=== PATIENT | female | born 1985 | race African-American/Black ===

== ENCOUNTER 2017-07-18 09:24 | Emergency (ER) | payer OTHER ==
--- NOTE | 2017-07-18 09:58 | ED ---
General Adult HPI - General Chief complaint: Extremity Injury, Upper Stated complaint: Wrist pain Time Seen by Provider: 07/18/17 09:46 Source: patient, RN notes reviewed Mode of arrival: ambulatory Limitations: no limitations - History of Present Illness Initial comments: Patient is a 32-year-old female presented to the emergency room today with a chief complaint of an injury to the right wrist that occurred 4 days ago. She states she was carrying her daughter's bike down some steps just with 1 hand. She states that he noticed some pain there afterwards. She states over the last 4 days does not improve she has been icing and using heat. Has not taken anything for pain. She states worse with certain movements. She denies any other complaints or injuries. - Related Data Home Medications Medication Instructions Recorded Confirmed Fluticasone Nasal [place] [Flonase 2 spr EA NOSTRIL DAILY 07/18/17 07/18/17 Nasal [place]] Allergies Allergy/AdvReac Type Severity Reaction Status Date / Time Penicillins Allergy Rash/Hives Verified 07/18/17 09:58 Review of Systems ROS Statement: Those systems with pertinent positive or pertinent negative responses have been documented in the HPI. ROS Other: All systems not noted in ROS Statement are negative. Past Medical History Past Medical History: No Reported History Additional Past Medical History / Comment(s): History of migranes and anxiety History of Any Multi-Drug Resistant Organisms: None Reported Past Surgical History: No Surgical Hx Reported Past Psychological History: Anxiety Smoking Status: Never smoker General Exam - General Exam Comments Initial Comments: General: The patient is awake and alert, in no distress, and does not appear acutely ill. Neck: The neck is supple, there is no tenderness or JVD. Musculoskeletal: Patient has normal appearance and right wrist no obvious deformity. Patient point tenderness on exam. Shows good range of motion. Does have some tenderness with full flexion extension of the right wrist. Radial pulse 2+. Strength 5/5. Sensation intact. Neurological: A&O x 3. CN II-XII intact, There are no obvious motor or sensory deficits. Coordination appears grossly intact. Speech is normal. Skin: Skin is warm and dry and no rashes or lesions are noted. Psychiatric: Normal mood and affect. Limitations: no limitations Course Vital Signs 07/18/17 09:39 Temperature 98.2 F Pulse Rate 74 Respiratory 18 Rate Blood Pressure 120/77 O2 Sat by Pulse 99 Oximetry Medical Decision Making - Medical Decision Making Patient reexamined at this time shows no signs of distress. Patient's x-rays negative. Eyes positive or sprain. Advised follow-up orthopedics if symptoms are not improving over the next week. Disposition Clinical Impression: Wrist sprain Disposition: HOME SELF-CARE Condition: Good Instructions: Wrist Sprain (ED) Additional Instructions: Please Leonel wrap on up and moving around. Please use ibuprofen for pain. Please follow-up the family doctor/orthopedic over the next 7-10 days if symptoms persist for repeat x-rays. Please return to emergency room if the symptoms increase or worsen or for any other concerns. Is patient prescribed a controlled substance at d/c from ED?: No Referrals: Jermaine Yung MD [Primary Care Provider] - 1-2 days Lucio Hill DO [Doctor of Osteopathic Medicine] - 1-2 days Time of Disposition: 11:15
--- NOTE | 2017-07-18 10:18 | XR ---
EXAMINATION TYPE: XR wrist complete RT DATE OF EXAM: 07/18/2017 COMPARISON: NONE HISTORY: Pain TECHNIQUE: Four views submitted. FINDINGS: The osseous structures are intact. The joint spaces are preserved and there is no acute fracture or dislocation. IMPRESSION: 1. No definite acute fracture or dislocation if symptoms persist, follow-up study in 7 to 10 days wo uld be suggested
[2017-07-18 11:25] VITALS: BP 129/88; PULSE 61; RESP 16; TEMP 97.7
== END 2017-07-18 11:29 | disposition home or self-care (01) ==
LOC: EC 09:24
DX: S63.501A Unspecified sprain of right wrist, initial encounter (principal); Z79.51 Long term (current) use of inhaled steroids; Z88.0 Allergy status to penicillin; X58.XXXA Exposure to other specified factors, initial encounter; Y93.89 Activity, other specified
CPT/HCPCS: 99283

== ENCOUNTER → 2017-09-02 | Outpatient (CLI) | payer OTHER ==
--- NOTE | 2017-09-02 10:25 | MM ---
Reason for exam: clinical finding. Baseline mammogram. History: Family history of breast cancer in paternal aunt at age 45 and breast cancer in maternal aunt at age 40. Took hormonal contraceptives for 1 year beginning at age 30. Physical Findings: Nurse did not find any significant physical abnormalities on exam. [facility] Mammo wo CAD DOMINGO Bilateral CC and MLO view(s) were taken. There are scattered fibroglandular densities. No suspicious abnormality. These results were verbally communicated with the patient and result sheet given to the patient on 09/02/17. ASSESSMENT: Negative, BI-RAD 1 RECOMMENDATION: Routine screening mammogram of both breasts at age 40. (40 or sooner in clinically indicated) Manage on a clinical basis with regard to bilteral nipple pain without discharge , no palpable) MTDD
== END | disposition home or self-care (01) ==
LOC: RADMAMWWP 08:24
PROVIDERS: ATTEND Obstetrics & Gynecology
DX: N64.59 Other signs and symptoms in breast (principal)
CPT/HCPCS: 77066

== ENCOUNTER 2017-09-20 10:45 | Emergency (ER) | payer OTHER ==
[2017-09-20 10:49] VITALS: BP 120/78; PULSE 69; RESP 18; TEMP 98
--- NOTE | 2017-09-20 11:29 | ED ---
General Adult HPI - General Chief complaint: Anxiety Stated complaint: Panic attack Time Seen by Provider: 09/20/17 10:50 Source: patient, EMS, RN notes reviewed Mode of arrival: EMS Limitations: no limitations - History of Present Illness Initial comments: 32-year-old female presents to the emergency department for a chief complaint of "panic attack." Patient states this occurred about 45 minutes ago. Patient states she was walking with her kids from the [facility] when she started to experience a panic attack. Patient states she started crying and felt somewhat short of breath. Patient states these are consistent with past panic attacks. She states multiple people stopped to help her and she believes the police called EMS because she saw them driving by. Patient states she used to take Xanax but her doctor does not want her on it anymore. Patient states she is currently taking Paxil. Patient has no other complaints at this time including shortness of breath, chest pain, abdominal pain, nausea or vomiting, headache, or visual changes. - Related Data Home Medications Medication Instructions Recorded Confirmed Fluticasone Nasal [place] [Flonase 1 spr EA NOSTRIL DAILY PRN 07/18/17 09/20/17 Nasal [place]] Allergies Allergy/AdvReac Type Severity Reaction Status Date / Time Penicillins Allergy Rash/Hives Verified 09/20/17 10:56 pineapple Allergy Anaphylaxis Verified 09/20/17 10:56 strawberry Allergy Rash/Hives Verified 09/20/17 10:56 Review of Systems ROS Statement: Those systems with pertinent positive or pertinent negative responses have been documented in the HPI. ROS Other: All systems not noted in ROS Statement are negative. Past Medical History Past Medical History: No Reported History Additional Past Medical History / Comment(s): History of migranes and anxiety History of Any Multi-Drug Resistant Organisms: None Reported Past Surgical History: No Surgical Hx Reported Past Psychological History: Anxiety Smoking Status: Never smoker Past Alcohol Use History: None Reported Past Drug Use History: None Reported General Exam Limitations: no limitations General appearance: alert, in no apparent distress (Laying in bed setting with children, patient calm, in no distress) Head exam: Present: atraumatic, normocephalic, normal inspection Eye exam: Present: normal appearance, PERRL, EOMI. Absent: scleral icterus, conjunctival injection, periorbital swelling ENT exam: Present: normal exam, normal oropharynx, mucous membranes moist, TM's normal bilaterally, normal external ear exam Neck exam: Present: normal inspection, full ROM. Absent: tenderness, meningismus, lymphadenopathy Respiratory exam: Present: normal lung sounds bilaterally. Absent: respiratory distress, wheezes, rales, rhonchi, stridor Cardiovascular Exam: Present: regular rate, normal rhythm, normal heart sounds. Absent: systolic murmur, diastolic murmur, rubs, gallop, clicks Neurological exam: Present: alert, oriented X3, CN II-XII intact Psychiatric exam: Present: normal affect, normal mood. Absent: anxious ( patient does not appear anxious, she is calm and answering questions without difficulty.) Course Vital Signs 09/20/17 10:46 Temperature 98 F Pulse Rate 69 Respiratory 18 Rate Blood Pressure 120/78 O2 Sat by Pulse 98 Oximetry Medical Decision Making - Medical Decision Making 32-year-old female presents to the emergency determine for chief complaint of panic attack occurring about 45 minutes ago. Patient symptoms are consistent with past panic attacks. On exam patient is not anxious appearing. She is calm and answering questions without difficulty. Patient states she is feeling much better although somewhat tired after experiencing the anxiety. Patient does not need anxiolytic at this time. Patient states she feels ready to go home. Patient agrees to follow up with primary care in 1-2 days to discuss medications. Patient agrees to return to the emergency Department if she has any worsening symptoms. Disposition Clinical Impression: Acute anxiety Disposition: HOME SELF-CARE Condition: Good Instructions: Generalized Anxiety Disorder (ED) Additional Instructions: Please follow up with primary care in 1-2 days. Return to the emergency department if you have any worsening symptoms. Is patient prescribed a controlled substance at d/c from ED?: No Referrals: Jermaine Yung MD [Primary Care Provider] - 1-2 days Time of Disposition: 11:29
== END 2017-09-20 11:50 | disposition home or self-care (01) ==
LOC: EC 10:45
DX: F41.9 Anxiety disorder, unspecified (principal); Z86.69 Personal history of other diseases of the nervous system and sense organs; Z88.0 Allergy status to penicillin; Z91.018 Allergy to other foods
CPT/HCPCS: 99283

== ENCOUNTER 2022-10-20 09:24 | Emergency (ER) | payer OTHER ==
[2022-10-20] MEDS ORDERED: ONDANSETRON 4 MG/2 ML VIAL IVP STA (10:43)
[2022-10-20] MEDS ORDERED: SODIUM CHLORIDE 0.9% 1,000 ML IV ONE (10:43)
[2022-10-20] MEDS ORDERED: MAG HYDROX/AL HYDROX/SIMETH 30 ML, HYOSCYAMINE ELIXIR 10 ML, LIDOCAINE 2% GLYDO JELLY 1... PO STA ×3 (10:54)
[2022-10-20 11:08] LABS: Appearance,Urine Clear (Clear); Bilirubin,Urine Negative (Negative); Blood,Urine Negative (Negative); Color,Urine Yellow; Glucose,Urine (UA) Negative (Negative); Ketones,Urine Negative (Negative); Leukocyte Esterase,Urine Negative (Negative); Nitrite,Urine Negative (Negative); PH, Urine 5.5 (5.0-8.0); Protein,Urine Trace (Negative); Specific Gravity,Urine 1.026 (1.001-1.035); Urobilinogen,Urine <2.0 mg/dL (<2.0)
--- NOTE | 2022-10-20 11:08 | ED ---
General Adult HPI - General Chief complaint: Abdominal Pain Stated complaint: Abd Pain Time Seen by Provider: 10/20/22 10:18 Source: patient, RN notes reviewed Mode of arrival: ambulatory Limitations: no limitations - History of Present Illness Initial comments: 37-year-old -[place] female with no significant past medical history presents the emergency department with a chief complaint of upper abdominal pain 4 days. She reports that the sensation is a constant burning that will sometimes sharp. It is worse if she lays on her left side. She's been trying [id number] remedies with mild symptomatic relief. She denies any coming symptoms of nausea, cough, sore throat, chest pain, shortness of breath, melena, hematochezia, dysuria, hematuria. Denies any abdominal surgery. She denies any recent alcohol or tobacco product use. LMP Date 09/27/2022. - Related Data Home Medications Medication Instructions Recorded Confirmed Fluticasone Nasal [place] [Flonase 1 spr EA NOSTRIL DAILY PRN 07/18/17 09/20/17 Nasal [place]] Previous Rx's Medication Instructions Recorded Dicyclomine [Bentyl] 20 mg PO TID #30 tablet 10/20/22 Ondansetron Odt [Zofran Odt] 4 mg PO Q8HR PRN #10 tab 10/20/22 Allergies Allergy/AdvReac Type Severity Reaction Status Date / Time Penicillins Allergy Rash/Hives Verified 10/20/22 09:47 pineapple Allergy Anaphylaxis Verified 10/20/22 09:47 strawberry Allergy Rash/Hives Verified 10/20/22 09:47 Review of Systems ROS Statement: Those systems with pertinent positive or pertinent negative responses have been documented in the HPI. ROS Other: All systems not noted in ROS Statement are negative. Past Medical History Past Medical History: No Reported History Additional Past Medical History / Comment(s): History of migranes and anxiety History of Any Multi-Drug Resistant Organisms: None Reported Past Surgical History: No Surgical Hx Reported Past Psychological History: Anxiety Smoking Status: Never smoker Past Alcohol Use History: None Reported Past Drug Use History: None Reported General Exam - General Exam Comments Initial Comments: General: Alert, in no acute distress Head: atraumatic normocephalic. Eyes PERRL, EOMI intact, mucous membranes moist Respiratory: Lungs clear to auscultation bilaterally Cardiovascular: Heart rate regular rate and rhythm Abdominal: Soft without guarding or rebound Extremities: Normal inspection with full range of motion and normal capillary refill Neuroogic: alert and oriented 3, CN II-XII intact, able to ambulate with steady gait Skin: warm dry and intact with normal color Limitations: no limitations Course Vital Signs 10/20/22 10/20/22 09:42 13:19 Temperature 98.2 F 97.5 F L Pulse Rate 82 69 Respiratory 18 16 Rate Blood Pressure 119/79 116/83 O2 Sat by Pulse 100 100 Oximetry - Reevaluation(s) Reevaluation #1: 10/20/22 12:22 Should reevaluated. Patient reports symptomatic relief status post medications. She is agreeable with the plan for discharge home with close follow-up with PCP in 1-2 days. Medical Decision Making - Medical Decision Making Was pt. sent in by a medical professional or institution (YANETH Oropeza, [employer]IC [employer]ER, urgent care, hospital, or long-term...) When possible be specific @ -[No] Did you speak to anyone other than the patient for history (EMS, parent, family, police, friend...)? What history was obtained from this source @ -[No] Did you review nursing and triage notes (agree or disagree)? Why? @ -[I reviewed and agree with nursing and triage notes] Were old charts reviewed (outside hosp., previous admission, EMS record, old EKG, old radiological studies, urgent care reports/EKG's, long-term records)? Report findings @ -[No old charts were reviewed] Differential Diagnosis (chest pain, altered mental status, abdominal pain women, abdominal pain men, vaginal bleeding, weakness, fever, dyspnea, syncope, headache, dizziness, GI bleed, back pain, seizure, CVA, palpatations, mental health, musculoskeletal)? @ -[not applicable] EKG interpreted by me (3pts min.). @ -[As above] X-rays interpreted by me (1pt min.). @ -[None done] CT interpreted by me (1pt min.). @ -[None done] U/S interpreted by me (1pt. min.). @ -[None done] What testing was considered but not performed or refused? (CT, X-rays, U/S, labs)? Why? @ -Imaging was considered however patient's laboratory studies are unremarkable. She reports symptomatically status post medications. What meds were considered but not given or refused? Why? @ -[None] Did you discuss the management of the patient with other professionals (professionals i.e. , YANETH, [employer]ER, lab, RT, psych nurse, social work job titles, residential program coordinator, teacher, tactical response group officer, geriatric case manager)? Give summary @ -[No] Was smoking cessation discussed for >3mins.? @ -[No] Was critical care preformed (if so, how long)? @ -[No] Were there social determinants of health that impacted care today? How? (Homelessness, low income, unemployed, alcoholism, drug addiction, transportation, low edu. Level, literacy, decrease access to med. care, skilled nursing, rehab)? @ -[No] Was there de-escalation of care discussed even if they declined (Discuss DNR or withdrawal of care, Hospice)? DNR status @ -[No] What co-morbidities impacted this encounter? (DM, HTN, Smoking, COPD, CAD, Cancer, CVA, ARF, Chemo, Hep., AIDS, mental health diagnosis, sleep apnea, morbid obesity)? @ -[None] Was patient admitted / discharged? Hospital course, mention meds given and route, prescriptions, significant lab abnormalities, going to OR and other pertinent info. @ -Discharged. This is a pleasant 37-year-old -[place] female who presents the emergency department with abdominal pain. Patient had a thorough history and physical exam performed. Physical exam is essentially unremarkable. Heart rate regular rate and bilaterally abdomen soft with mild tenderness. Patient laboratory studies performed which were unremarkable. She was given GI cocktail symptomatic relief. Strict return precautions were discussed. Patient discharged in stable condition. Case discussed with JOSE ALFREDO Gregory who agrees with Plan of care Undiagnosed new problem with uncertain prognosis? @ -[No] Drug Therapy requiring intensive monitoring for toxicity (Heparin, Nitro, Insulin, Cardizem)? @ -[No] Were any procedures done? @ -[No] Diagnosis/symptom? @ -Abdominal Pain Acute, or Chronic, or Acute on Chronic? @Acute ncomplicated (without systemic symptoms) or Complicated (systemic symptoms)? @ -Uncomplicated Side effects of treatment? @ -[No] Exacerbation, Progression, or Severe Exacerbation? @ -[No] Poses a threat to life or bodily function? How? (Chest pain, USA, MD, pneumonia, PE, COPD, DKA, ARF, appy, cholecystitis, CVA, Diverticulitis, Homicidal, Suicidal, threat to staff... and all critical care pts) @ -Low ikelihood - Lab Data Result diagrams: 10/20/22 11:03 10/20/22 11:03 Lab Results 10/20/22 10/20/22 10/20/22 Range/Units 10:51 10:51 10:54 WBC (3.8-10.6) k/uL RBC (3.80-5.40) m/uL Hgb (11.4-16.0) gm/dL Hct (34.0-46.0) % MCV (80.0-100.0) fL MCH (25.0-35.0) pg MCHC (31.0-37.0) g/dL RDW (11.5-15.5) % Plt Count (150-450) k/uL MPV Neutrophils % % Lymphocytes % % Monocytes % % Eosinophils % % Basophils % % Neutrophils # (1.3-7.7) k/uL Lymphocytes # (1.0-4.8) k/uL Monocytes # (0-1.0) k/uL Eosinophils # (0-0.7) k/uL Basophils # (0-0.2) k/uL Hypochromasia Microcytosis Sodium (137-145) mmol/L Potassium (3.5-5.1) mmol/L Chloride (98-107) mmol/L Carbon Dioxide (22-30) mmol/L Anion Gap mmol/L BUN (7-17) mg/dL Creatinine (0.52-1.04) mg/dL Est GFR (CKD-EPI)AfAm (>60 ml/min/1.73 sqM) Est GFR (CKD-EPI)NonAf (>60 ml/min/1.73 sqM) Glucose (74-99) mg/dL Calcium (8.4-10.2) mg/dL Total Bilirubin (0.2-1.3) mg/dL AST (14-36) U/L ALT (4-34) U/L Alkaline Phosphatase (38-126) U/L Total Protein (6.3-8.2) g/dL Albumin (3.5-5.0) g/dL Amylase (30-110) U/L Lipase (23-300) U/L Urine Color Yellow Urine Appearance Clear (Clear) Urine pH 5.5 (5.0-8.0) Ur Specific [place] 1.026 (1.001-1.035) Urine Protein Trace H (Negative) Urine Glucose (UA) Negative (Negative) Urine Ketones Negative (Negative) Urine Blood Negative (Negative) Urine Nitrite Negative (Negative) Urine Bilirubin Negative (Negative) Urine Urobilinogen <2.0 (<2.0) mg/dL Ur Leukocyte Esterase Negative (Negative) Urine HCG, Qual Not Detected (Not Detectd) Influenza Type A (PCR) Not Detected (Not Detectd) Influenza Type B (PCR) Not Detected (Not Detectd) RSV (PCR) Not Detected (Not Detectd) SARS-CoV-2 (PCR) Not Detected (Not Detectd) 10/20/22 10/20/22 Range/Units 11:03 11:03 WBC 6.2 (3.8-10.6) k/uL RBC 5.25 (3.80-5.40) m/uL Hgb 12.7 (11.4-16.0) gm/dL Hct 40.3 (34.0-46.0) % MCV 76.7 L (80.0-100.0) fL MCH 24.2 L (25.0-35.0) pg MCHC 31.5 (31.0-37.0) g/dL RDW 15.8 H (11.5-15.5) % Plt Count 321 (150-450) k/uL MPV 6.9 Neutrophils % 62 % Lymphocytes % 28 % Monocytes % 4 % Eosinophils % 4 % Basophils % 1 % Neutrophils # 3.8 (1.3-7.7) k/uL Lymphocytes # 1.8 (1.0-4.8) k/uL Monocytes # 0.3 (0-1.0) k/uL Eosinophils # 0.2 (0-0.7) k/uL Basophils # 0.0 (0-0.2) k/uL Hypochromasia Slight Microcytosis Slight Sodium 139 (137-145) mmol/L Potassium 3.8 (3.5-5.1) mmol/L Chloride 106 (98-107) mmol/L Carbon Dioxide 26 (22-30) mmol/L Anion Gap 7 mmol/L BUN 5 L (7-17) mg/dL Creatinine 0.71 (0.52-1.04) mg/dL Est GFR (CKD-EPI)AfAm >90 (>60 ml/min/1.73 sqM) Est GFR (CKD-EPI)NonAf >90 (>60 ml/min/1.73 sqM) Glucose 92 (74-99) mg/dL Calcium 9.1 (8.4-10.2) mg/dL Total Bilirubin 0.6 (0.2-1.3) mg/dL AST 24 (14-36) U/L ALT 19 (4-34) U/L Alkaline Phosphatase 105 (38-126) U/L Total Protein 7.8 (6.3-8.2) g/dL Albumin 4.0 (3.5-5.0) g/dL Amylase 51 (30-110) U/L Lipase 73 (23-300) U/L Urine Color Urine Appearance (Clear) Urine pH (5.0-8.0) Ur Specific Gilman (1.001-1.035) Urine Protein (Negative) Urine Glucose (UA) (Negative) Urine Ketones (Negative) Urine Blood (Negative) Urine Nitrite (Negative) Urine Bilirubin (Negative) Urine Urobilinogen (<2.0) mg/dL Ur Leukocyte Esterase (Negative) Urine HCG, Qual (Not Detectd) Influenza Type A (PCR) (Not Detectd) Influenza Type B (PCR) (Not Detectd) RSV (PCR) (Not Detectd) SARS-CoV-2 (PCR) (Not Detectd) Disposition Clinical Impression: Abdominal pain, Nausea & vomiting Disposition: HOME SELF-CARE Condition: Stable Prescriptions: Dicyclomine [Bentyl] 20 mg PO TID #30 tablet Ondansetron Odt [Zofran Odt] 4 mg PO Q8HR PRN #10 tab PRN Reason: Nausea Is patient prescribed a controlled substance at d/c from ED?: No Referrals: Jermaine Yung MD [Primary Care Provider] - 1-2 days Time of Disposition: 12:51
[2022-10-20 11:23] LABS: Basophils % (A) 1 %; Eosinophils # (A) 0.2 k/uL (0-0.7); Eosinophils % (A) 4 %; HCT 40.3 % (34.0-46.0); HGB 12.7 gm/dL (11.4-16.0); Hypochromasia Slight; Lymphocytes # (A) 1.8 k/uL (1.0-4.8); Lymphocytes % (A) 28 %; MCH 24.2 pg (25.0-35.0); MCHC 31.5 g/dL (31.0-37.0); MCV 76.7 fL (80.0-100.0); Mean Platelet Volume 6.9; Microcytosis Slight; Monocytes # (A) 0.3 k/uL (0-1.0); Monocytes % (A) 4 %; Neutrophils # (A) 3.8 k/uL (1.3-7.7); Neutrophils % (A) 62 %; Platelet Count 321 k/uL (150-450); RBC 5.25 m/uL (3.80-5.40); RDW 15.8 % (11.5-15.5); WBC 6.2 k/uL (3.8-10.6)
[2022-10-20 11:49] LABS: ALT 19 U/L (4-34); AST 24 U/L (14-36); African American GFR (CKD) >90 (>60 ml/min/1.73 sqM); Alkaline Phosphatase 105 U/L (38-126); Amylase 51 U/L (30-110); Anion Gap 7 mmol/L; Blood Urea Nitrogen 5 mg/dL (7-17); Calcium 9.1 mg/dL (8.4-10.2); Carbon Dioxide 26 mmol/L (22-30); Chloride 106 mmol/L (98-107); Glucose 92 mg/dL (74-99); Lipase 73 U/L (23-300); Non-African American GFR(CKD) >90 (>60 ml/min/1.73 sqM); Potassium 3.8 mmol/L (3.5-5.1); Sodium 139 mmol/L (137-145); Total Bilirubin 0.6 mg/dL (0.2-1.3); Total Protein 7.8 g/dL (6.3-8.2)
[2022-10-20 13:21] VITALS: BP 116/83; PULSE 69; RESP 16; TEMP 97.5
== END 2022-10-20 13:21 | disposition home or self-care (01) ==
LOC: EC 09:24
DX: R10.11 Right upper quadrant pain (principal); R10.12 Left upper quadrant pain; R11.2 Nausea with vomiting, unspecified; Z20.822 Contact with and (suspected) exposure to COVID-19; Z88.0 Allergy status to penicillin; Z91.018 Allergy to other foods
CPT/HCPCS: 36415; 80053; 82150; 83690; 85025; 81003; 81025; 87636; 99284; 96374; 96361; J2405

== ENCOUNTER → 2023-08-01 | Outpatient (CLI) | payer OTHER ==
--- NOTE | 2023-08-01 10:03 | MR ---
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 TECHNIQUE: Multiplanar, multisequence images of the brain and brainstem were acquired before and aft er administration of 11 mL IV Gadavist. Diffusion weighted imaging is performed. FINDINGS: No evidence for acute infarction, hemorrhage, mass, mass effect, midline shift, herniation, effacemen t of basal cisterns, or extra-axial fluid collection. The ventricles and sulci are age-appropriate. Major intracranial flow voids are intact. T2/FLAIR weighted sequences show mild scattered foci of bright signal in the subcortical regions of t he left cerebral hemisphere (less than 5). Midline structures demonstrate a partially empty sella but otherwise normal morphology. The cranioce rvical junction is normal. Post contrast images demonstrate no evidence of pathologic enhancement. Dural venous sinuses are pat ent. Moderate mucosal thickening ethmoid air cells and trace within the maxillary sinuses. Globes appear i ntact. Slightly prominent fluid along the optic nerve sheaths probably within physiologic range. IMPRESSION: 1. No acute intracranial abnormality seen. Minimal burden of T2 bright white matter change which is n onspecific. Possible early changes related to chronic small vessel ischemic disease. Chronic migraine s and demyelinating disease are in the differential as well. 2. Partially empty sella. Trace fluid along the optic nerve sheaths probably within physiologic range . However, given patient's reported history, further assessment such as with CSF opening pressures ca n be obtained if concern for pseudotumor cerebri. 3. Moderate chronic ethmoid sinus disease.
== END | disposition home or self-care (01) ==
LOC: RADMRIMAIN 05:54
PROVIDERS: ATTEND Ophthalmology
DX: H47.333 Pseudopapilledema of optic disc, bilateral (principal); J32.2 Chronic ethmoidal sinusitis; G93.2 Benign intracranial hypertension
CPT/HCPCS: 70553; A9585

== ENCOUNTER 2023-08-02 12:56 | Day surgery (SDC) | payer OTHER ==
[2023-07-22 15:23] VITALS: BMI 33.4
[~2023-08-02 12:56] MED LIST: LACTATED RINGERS 1,000 ML IV SCH
[2023-08-02] MEDS ORDERED: LACTATED RINGERS 1,000 ML IV SCH (13:24)
[2023-08-02 13:42] VITALS: RESP 16; TEMP 96.8
--- NOTE | 2023-08-02 15:05 | P.PCN ---
Description of Procedure: Preprocedure diagnosis. Mental status change. Postprocedure diagnosis. As above. Procedure done. Lumbar puncture and collection of cerebrospinal fluid. Anesthesia. Local infiltration with anesthetics. Continuous pulse ox, EKG, blood pressure and verbal communication was maintained with the patient. Blood loss. None. Indication. Discussed the procedure, alternatives, complications which may include infection, nerve damage, paralysis, aggravation of the symptoms especially bleeding in the spine and posterior dural puncture headache with the patient. The patient understands and questions were answered. Procedure note. After getting concentration in the procedure room in sitting position. Unable to space in lateral position because of excessive soft tissue. Even using fluoroscope. Decided to go facedown prone position. Under fluoroscopy, L4-5 intervertebral space was identified. Back prepped with chlorhexidine and draped in sterile fashion. After injecting 3 mL of 1% lidocaine subcutaneously, 7 inch 22-gauge spinal needle was introduced at L4-5 interspace. Positive CSF, negative blood, negative paresthesia. CSF color was clear. CSF opening pressure 19.closing pressure 9 . CSF was collected in 4 supplied sterol containers in sequence. Spinal needle was taken out and bandage was applied. Disposition. Patient tolerated the procedure well. No complication. Advised patient to lay flat one-hour postprocedure. The rest of the day today try to lay flat as much as possible. Next 3 days drink lots of fluid especially caffeinated beverages, and avoid constipation cough and doing strenuous physical work. Discharged home in stable condition.
[2023-08-02] MEDS: ACETAMINOPHEN TAB 500 MG TAB PO STA (15:10)
--- NOTE | 2023-08-02 15:57 | FL ---
EXAMINATION TYPE: FL guided pain mgmt statistic Intraoperative/procedural fluoroscopic services were provided. Total fluoroscopy time is 43 seconds with a total of 3 submitted images to PACS. Please see the operative/procedural note for further details. DAP: [id number] [id number]
[2023-08-02 16:03] VITALS: BP 110/78; PULSE 75
[2023-08-02 20:23] LABS: Glucose,CSF 55 mg/dL (40-70); Total Protein,CSF 39 mg/dL (12-60)
== END 2023-08-02 16:17 | disposition home or self-care (01) ==
LOC: ORPAIN 12:56
PROVIDERS: ATTEND Pain Medicine Interventional Pain Medicine
DX: R41.82 Altered mental status, unspecified (principal)
CPT/HCPCS: 62270; 82945; 84157; 88108

== ENCOUNTER → 2024-05-08 | Outpatient (CLI) | payer OTHER ==
--- NOTE | 2024-05-08 20:45 | CA ---
Exercise Stress Test Report Name: Milvia Wetzel Exam Date: 05/08/2024 11:08 Exam Location: [place] Stress Ht (in): 68 Wt (lb): 280 BSA: 2.36 Ordering Phys: Jermaine Yung MD Referring Phys: Jermaine Yung MD Technologist: BJ RESTREPO Age: 38 Gender: F : 1985 Procedure CPT: Indications: R07.9 CHEST PAIN, UNSPECIFIED ICD-10 Codes: Patient History: CP, FIDELINA, FAMILY HX. Medications: BUSPARONE,,,, SYMBACORT,,,, ABUTEROL,,,, DIOMOX,,, Meds past 24 hrs: Pretest Chest Pain: STRESS TEST Roly Protocol Exercise Duration (min:sec): 03:[address] Depressions (mm): Angina Score: Sosa Score: Resting HR (bpm): 98 Peak HR (bpm): 160 Resting BP (mmHg): 106 / 72 Peak BP (mmHg): 234 / 70 MPHR: 182 Target HR: 155 % MPHR: 88 METS: 5.6 Total Dose: Peak Dose: Atropine: Double Product: 32761 BP Response: Stress Termination: TARGET HR REACHED/MAX EXERTION Stress Symptoms: DIFFICULTY IN BREATHING Stress Summary: ECG ANALYSIS Resting ECG: Stress ECG: CONCLUSIONS Indication: Shortness of breath chest pain dyslipidemia Very poor exercise capacity of 3-1/2 minutes Normal blood pressure response No ECG evidence for ischemia at this very low workload level Very low workload achieved during this stress test Dr. Henry Hernández MD (Electronically Signed) Final Date: 08 May 2024 20:44
== END | disposition home or self-care (01) ==
LOC: RADNMMAIN 10:35
PROVIDERS: ATTEND Family Medicine
DX: E78.5 Hyperlipidemia, unspecified (principal); R07.9 Chest pain, unspecified; R06.02 Shortness of breath
CPT/HCPCS: 93017

== ENCOUNTER 2024-08-02 13:20 | Emergency (ER) | payer OTHER ==
[2024-08-02 13:41] VITALS: BP 102/63; PULSE 76; RESP 12; TEMP 98.1
--- NOTE | 2024-08-02 13:48 | ED ---
Anxiety HPI - General Chief Complaint: Anxiety Stated Complaint: Anxiety Time Seen by Provider: 08/02/24 13:47 Source: patient, RN notes reviewed Mode of arrival: wheelchair - History of Present Illness Initial Comments: Quick [id number] female presenting for chest pain x 2 days. States she has been experiencing intermittent chest pain over the past 2 days but it got worse at work today. States she does have a history of panic attacks and did not take her anxiety medication today. - Related Data Home Medications: Home Medications Medication Instructions Recorded Confirmed No Known Home Medications 07/22/23 07/29/23 Allergies/Adverse Reactions: Allergies Allergy/AdvReac Type Severity Reaction Status Date / Time Penicillins Allergy Rash/Hives Verified 08/02/23 13:28 pineapple Allergy Anaphylaxis Verified 08/02/23 13:28 strawberry Allergy Rash/Hives Verified 08/02/23 13:28 Review of Systems ROS Statement: Those systems with pertinent positive or pertinent negative responses have been documented in the HPI. ROS Other: All systems not noted in ROS Statement are negative. Past Medical History Past Medical History: No Reported History Additional Past Medical History / Comment(s): History of migranes and anxiety History of Any Multi-Drug Resistant Organisms: None Reported Past Surgical History: No Surgical Hx Reported Past Psychological History: Anxiety, Panic Disorder Smoking Status: Never smoker Past Alcohol Use History: None Reported Past Drug Use History: None Reported General Exam - General Exam Comments Initial Comments: Visual Physical Exam Vital signs reviewed General: Well-appearing, nontoxic, no acute distress. Head: Normocephalic, atraumatic Eyes: PERRLA, EOMI ENT: Airway patent Chest: Nonlabored breathing Skin: No visual rash, normal skin tone Neuro: Alert and oriented 3 Musculoskeletal: No gross abnormalities Limitations: no limitations Course Vital Signs 08/02/24 13:38 Temperature 98.1 F Pulse Rate 76 Respiratory 12 Rate Blood Pressure 102/63 O2 Sat by Pulse 100 Oximetry Medical Decision Making - Medical Decision Making I completed the quick note portion of this chart signed Bisi Shore PA-C Patient left AGAINST MEDICAL ADVICE before full evaluation and disposition were complete. - Lab Data Result diagrams: 08/02/24 14:46 08/02/24 14:46 Lab Results 08/02/24 08/02/24 08/02/24 Range/Units 14:46 14:46 14:46 WBC 5.99 (4.50-10.00) 10*3/uL RBC 4.78 (4.10-5.20) 10*6/uL Hgb 10.6 L (12.0-15.0) g/dL Hct 34.1 L (37.2-46.3) % MCV 71.3 L (80.0-97.0) fL MCH 22.2 L (27.0-32.0) pg MCHC 31.1 L (32.0-37.0) g/dL Plt Count 361 (140-440) 10*3/uL MPV 9.3 L (9.5-12.2) fL Immature Gran % (Auto) 0.2 % Neutrophils % 52.4 % Lymphocytes % 37.9 % Monocytes % 6.2 % Eosinophils % 3.0 % Basophils % 0.3 % Immature Gran # 0.01 (0.00-0.04) 10*3/uL Neutrophils # 3.14 (1.80-7.70) 10*3/uL Lymphocytes # 2.27 (0.90-5.00) 10*3/uL Monocytes # 0.37 (0.20-1.00) 10*3/uL Eosinophils # 0.18 (0.04-0.35) 10*3/uL Basophils # 0.02 (0.00-0.10) 10*3/uL Sodium 138 (137-145) mmol/L Potassium 3.8 (3.5-5.1) mmol/L Chloride 107 (98-107) mmol/L Carbon Dioxide 23 (22-30) mmol/L Anion Gap 8 mmol/L BUN 8 (7-17) mg/dL Creatinine 0.52 (0.52-1.04) mg/dL Est GFR (CKD-EPI)AfAm >90 (>60 ml/min/1.73 sqM) Est GFR (CKD-EPI)NonAf >90 (>60 ml/min/1.73 sqM) Glucose 83 (74-99) mg/dL Calcium 9.2 (8.4-10.2) mg/dL Total Bilirubin 0.5 (0.2-1.3) mg/dL AST 23 (14-36) U/L ALT 14 (4-34) U/L Alkaline Phosphatase 126 (38-126) U/L Troponin I <0.012 (0.000-0.034) ng/mL Total Protein 7.2 (6.3-8.2) g/dL Albumin 3.8 (3.5-5.0) g/dL Disposition Clinical Impression: Chest pain Disposition: LEFT AGAINST MEDICAL ADVICE Instructions (If sedation given, give patient instructions): Generalized Anxiety Disorder (ED) Referrals: Jermaine Yung MD [Primary Care Provider] - 1-2 days
--- NOTE | 2024-08-02 14:36 | XR ---
EXAMINATION TYPE: XR chest 2V DATE OF EXAM: 08/02/2024 2:30 PM COMPARISON: 07/08/2014 CLINICAL INDICATION: Female, 39 years old with history of chest pain, , TECHNIQUE: PA and lateral views FINDINGS: The cardiomediastinal silhouette, aorta, and pulmonary vasculature are within normal limits. Hazy low er lung densities relating to overlying soft tissue. No consolidation or pleural effusion is seen. IMPRESSION: No acute cardiopulmonary process. [facility], , 08/02/2024 2:33 PM
[2024-08-02 15:05] LABS: Basophils # (A) 0.02 10*3/uL (0.00-0.10); Basophils % (A) 0.3 %; Eosinophils # (A) 0.18 10*3/uL (0.04-0.35); HCT 34.1 % (37.2-46.3); HGB 10.6 g/dL (12.0-15.0); Lymphocytes # (A) 2.27 10*3/uL (0.90-5.00); Lymphocytes % (A) 37.9 %; MCH 22.2 pg (27.0-32.0); MCHC 31.1 g/dL (32.0-37.0); MCV 71.3 fL (80.0-97.0); Mean Platelet Volume 9.3 fL (9.5-12.2); Monocytes # (A) 0.37 10*3/uL (0.20-1.00); Monocytes % (A) 6.2 %; Neutrophils # (A) 3.14 10*3/uL (1.80-7.70); Neutrophils % (A) 52.4 %; Platelet Count 361 10*3/uL (140-440); RBC 4.78 10*6/uL (4.10-5.20); RDW 17.2 % (11.5-14.5); WBC 5.99 10*3/uL (4.50-10.00)
[2024-08-02 15:15] LABS: ALT 14 U/L (4-34); AST 23 U/L (14-36); African American GFR (CKD) >90 (>60 ml/min/1.73 sqM); Albumin 3.8 g/dL (3.5-5.0); Alkaline Phosphatase 126 U/L (38-126); Anion Gap 8 mmol/L; Blood Urea Nitrogen 8 mg/dL (7-17); Calcium 9.2 mg/dL (8.4-10.2); Carbon Dioxide 23 mmol/L (22-30); Chloride 107 mmol/L (98-107); Glucose 83 mg/dL (74-99); Non-African American GFR(CKD) >90 (>60 ml/min/1.73 sqM); Potassium 3.8 mmol/L (3.5-5.1); Sodium 138 mmol/L (137-145); Total Bilirubin 0.5 mg/dL (0.2-1.3); Total Protein 7.2 g/dL (6.3-8.2)
[2024-08-02] MEDS: LORazepam 1 MG/0.5 ML VIAL IM STA (17:36)
== END 2024-08-02 18:38 | disposition left against medical advice (07) ==
LOC: EC 13:20
DX: R07.9 Chest pain, unspecified (principal); Z88.0 Allergy status to penicillin; Z91.018 Allergy to other foods; Z53.29 Procedure and treatment not carried out because of patient's decision for other reasons
CPT/HCPCS: 36415; 93005; 80053; 84484; 85025; 71046; 99284; 96372; J2060